=== PATIENT | male | born 1955 | race Two or more races ===

== ENCOUNTER → 2024-10-22 | Outpatient (CLI) | payer MEDICARE, OTHER, SELFPAY ==
[2024-10-22 13:45] LABS: Collection Type, Urine Clean Catch; Squamous Epithelial Cell,Urine 0 /hpf (0-5)
[2024-10-22 14:09] LABS: Basophils # (Auto) 0.0 Thou/mm3 (0.0-0.2); Basophils % (Auto) 1 % (0-2.5); Eosinophils # (Auto) 0.1 Thou/mm3 (0.0-0.5); Eosinophils % (Auto) 2 % (0-10); Hematocrit 42.9 % (41.0-53.0); Hemoglobin 14.7 g/dL (13.5-16.0); Immature Granulocytes Auto 0.01 Thou/mm3 (0.00-0.00); Lymphocytes # (Auto) 1.5 Thou/mm3 (1.0-4.8); Lymphocytes % (Auto) 34 % (10-50); Mean Corpuscular HGB Conc 34.3 g/dl (31.0-37.0); Mean Corpuscular Hemoglobin 30.6 pg (25.0-35.0); Mean Corpuscular Volume 89 fL (80-100); Monocytes # (Auto) 0.4 Thou/mm3 (0.0-0.8); Monocytes % (Auto) 8 % (0-12); Neutrophils # (Auto) 2.5 Thou/mm3 (1.8-7.7); Neutrophils % (Auto) 55 % (37-80); Nucleated Red Blood Cell # 0.00 Thou/mm3 (0.00-0.00); Nucleated Red Blood Cell % 0 /100 WBC (0); Platelet Count 190 Thou/mm3 (140-440); RDW Standard Deviation 39.5 fL (35.1-43.9); Red Blood Count 4.81 Miln/mm3 (4.50-5.90); White Blood Count 4.5 Thou/mm3 (3.8-10.6)
[2024-10-22 14:15] LABS: Bilirubin,Urine Negative (Negative); Blood,Urine Negative (Negative); Clarity,Urine Clear (Clear/Hazy); Color,Urine Yellow (Lt Yel-Yel); Culture Indicated,Urine Not Indicated; Glucose, Urine Negative (Negative); Ketones,Urine Negative (Negative); Leukocyte Esterase,Urine Negative (Negative); Nitrite,Urine Negative (Negative); PH,Urine 6.0 (5.0-7.0); Protein,Urine Trace (Neg - Trace); RBC,Urine 2 /hpf (0-3); Specific Gravity,Urine 1.034 (1.001-1.035); Urobilinogen,Urine Negative mg/dL (0.0-1.0); WBC,Urine 1 /hpf (0-5)
[2024-10-22 14:15] LABS: Prostate Specific Antigen 0.76 ng/mL (0-4.00)
[2024-10-22 14:17] LABS: Glucose Estimated Average 111 mg/dL (80-131); Hemoglobin A1C 5.5 % Hgb (4.8-6.0)
[2024-10-22 14:19] LABS: Alanine Aminotransferase 23 U/L (10-49); Albumin, Serum 4.2 gm/dL (3.4-4.8); Albumin/Globulin Ratio 1.9 (1.2-2.2); Alkaline Phosphatase 55 U/L (46-116); Anion Gap 10 (7-16); Aspartate Amino Transferase 23 U/L (0-34); BUN/Creatinine Ratio 19 Ratio (12-20); Bilirubin,Total 1.2 mg/dL (0.3-1.2); Blood Urea Nitrogen 19 mg/dL (9-23); Calcium 9.8 mg/dL (8.3-10.6); Calcium (Corrected) 9.8 mg/dL (8.5-10.1); Carbon Dioxide 28.0 mMol/L (20.0-31.0); Cardiac Risk Estimate 2.7 RATIO (4.0-6.7); Chloride 108 mMol/L (98-107); Cholesterol 195 mg/dL (132-200); Creatinine (Component) 1.0 mg/dL (0.6-1.3); Globulin 2.2 gm/dL (2.3-3.5); Glucose 96 mg/dL (74-106); HDL Cholesterol 73 mg/dL (40-60); LDL Cholesterol,Calculated 111 mg/dL (0-130); Osmolality,Calculated 292 (275-295); Potassium 4.4 mMol/L (3.4-5.1); Sodium 146 mMol/L (136-145); Thyroid Stimulating Hormone 1.61 uIU/mL (0.55-4.78); Total Protein 6.4 gm/dL (5.7-8.2); Triglycerides 54 mg/dL (30-150); eGFR > 60 See Note
[2024-10-22 14:20] LABS: Vitamin B12 679 pg/mL (211-911); Vitamin D 25 Hydroxy Total 39.6 ng/mL (7.3-40.2)
== END | disposition home or self-care (01) ==
LOC: COPL 12:42
PROVIDERS: PCP Family Medicine; Referring Provider Physician Assistant; Visit Provider Physician Assistant
DX: R73.01 Impaired fasting glucose (principal); E78.5 Hyperlipidemia, unspecified; E55.9 Vitamin D deficiency, unspecified; D51.9 Vitamin B12 deficiency anemia, unspecified
CPT/HCPCS: 36415; 80053; 80061; 81001; 82306; 82607; 83036; 84153; 84443; 85025

== ENCOUNTER → 2024-11-24 | Outpatient (CLI) | payer MEDICARE, OTHER, SELFPAY ==
[2024-11-27 07:07] LABS: Fecal Globin Result NOT DETECTED (NOT DETECTED)
== END | disposition home or self-care (01) ==
LOC: SLDO 10:51
PROVIDERS: PCP Family Medicine; Referring Provider Physician Assistant; Visit Provider Physician Assistant
DX: R73.01 Impaired fasting glucose (principal); E78.5 Hyperlipidemia, unspecified; E55.9 Vitamin D deficiency, unspecified; D51.9 Vitamin B12 deficiency anemia, unspecified
CPT/HCPCS: 82274; G0328

== ENCOUNTER 2024-12-23 10:57 | Emergency (ER) | payer MEDICARE, BC, SELFPAY ==
[2024-12-23 11:09] VITALS: BP 137/65; PULSE 57; RESP 18; TEMP 36.7; O2SAT 100; BMI 30.2
--- NOTE | 2024-12-23 11:12 | XR_ITS ---
Examination: CT abdomen and pelvis without contrast. Coronal 3-D reconstructions. Sagittal 2-D reconstructions. Date and time of exam: December 23, 2024, 1129 hours INDICATIONS: Left side abdominal pain flank pain beginning today CTDI: vol (mGy): 8.45 DLP: (mGycm): 470 Technique: Axial images of the abdomen have been obtained, 3 mm slice thickness Intravenous contrast material has not been administered. Low dose protocols were performed. One or more of the following dose reduction techniques were used; automated exposure control, adjustment of the mA and/or KV according to patient size, use of iterative reconstruction technique. Findings: Benign liver cysts, no intrahepatic biliary tract dilatation Gallbladder wall appears mildly thickened Spleen is not enlarged No pancreatic or adrenal mass Minimal left hydronephrosis secondary to 3 mm proximal left ureteral calculus Normal appendix Colonic diverticulosis No bladder mass or bladder calculi Mild prostatomegaly Diffuse mild to moderate lumbar degenerative disc disease Moderate bilateral hip osteoarthritis IMPRESSION: Minimal left hydronephrosis secondary to 3 mm proximal left ureteral calculus
--- NOTE | 2024-12-23 11:13 | EDRME_ITS ---
Rapid Medical Screening Exam [facility] Arrival date/time: 12/23/24 10:57 69-year-old male presents to the emerged from today for complaints of left sided flank pain and left lower abdominal pain ongoing since last night Chief Complaint: Abdominal Pain Vital signs reviewed by provider: Yes Exam: On exam clinically patient appears to be in pain left lower abdomen and left flank region Clinical Impression: Lab work and imaging ordered as well as medication
--- NOTE | 2024-12-23 11:27 | EDNOTE_ITS ---
<Statement entered by Jaimie Navarro MD - 12/23/24 16:04> As co-signing physician, I was present and available for consult prn. I concur with the plan and care as documented by the midlevel provider. ED Abdominal Pain RME/HPI General Chief Complaint: Abdominal Pain Stated complaint: PAIN L) ABD 8/10 RADIATING TO BACK, VOMITING Time seen by provider: 12/23/24 11:23 Arrival date/time: 12/23/24 10:57 69-year-old male patient came in for evaluation regarding left lower quadrant pain. Onset of symptoms since yesterday as left lower quadrant pain, described as sharp pain, severity 8 out of 10 radiating to the back. Pain initially was noted yesterday getting worse this morning. No fever noted no constipation noted patient chronic diarrhea due to IBS. No medication was taken prior to ER visit. RME / HPI RME / HPI narrative: 12/23/24 10:57 69-year-old male presents to the emerged from today for complaints of left sided flank pain and left lower abdominal pain ongoing since last night Exam: On exam clinically patient appears to be in pain left lower abdomen and left flank region Impression: Lab work and imaging ordered as well as medication Related Data Home Medications ?Medication ?Instructions ?Recorded ?Confirmed omega 5-tcj-keq-fish oil 300 1 cap PO QDAY 04/25/23 mg-1,000 mg capsule (Fish Oil) Previous Rx's ?Medication ?Instructions ?Recorded ketorolac 10 mg tablet 10 mg PO Q8H PRN pain 3 days #10 12/23/24 tabs tamsulosin 0.4 mg capsule (Flomax) 0.4 mg PO QDAY #10 caps 12/23/24 Allergies Allergy/AdvReac Type Severity Reaction Status Date / Time No Known Allergies Allergy Verified 12/23/24 11:00 Review of Systems Review of Systems Narrative Review of Systems: Review of system reviewed and within normal limits except mentioned in HPI ED Exam Narrative Physical exam: VITAL SIGNS: Reviewed. GENERAL APPEARANCE: Alert and interactive, follows commands, no acute distress, HEAD AND FACE: Non-traumatic. ENT: PERRL, pink conjunctivitis, eyelid no trauma, Mucous membrane moist. NECK: Supple, nontender, no nuchal rigidity. CHEST: No tenderness, no crepitus, no paradoxical movement, no retractions. LUNGS: Clear, well ventilated, symmetric, no rales, no wheezing, no ronchi, no stridor, good breath sounds bilaterally. HEART: Regular rate, regular rhythm, no murmur, no gallops. ABDOMEN: Soft, positive bowel sounds, nondistended, no guarding, left lower quadrant tenderness, no rebound, no masses, RECTAL: Deferred. GENITAL: Deferred. NEUROLOGICAL: Gross motor function intact sensory function intact, Appropriate for age. MUSCULOSKELETAL: low back nontender, full range of motion. EXTREMITIES: Nontender, full range of motion. SKIN: Color pink, dry, no rash, no lacerations, no abrasions, no contusions. LYMPHATICS: Deferred. Course Quality Measures none Orders Category Date Time Status Insert IV NOW Care 12/23/24 11:[address] abdomen pelvis wo con Stat Exams 12/23/24 11:12 Completed CBC Stat Lab 12/23/24 11:39 Completed Comprehensive Metabolic Panel Stat Lab 12/23/24 11:39 Completed Lipase Stat Lab 12/23/24 11:39 Completed UA, C/S IF [Urinalysis, C/S if Indicated] Stat Lab 12/23/24 12:47 Completed Ketorolac Inj [Toradol Inj] Med 12/23/24 11:10 Discontinued 30 mg IM X1 ONE Ketorolac Inj [Toradol Inj] Med 12/23/24 11:18 Discontinued 30 mg IVP X1 ONE Morphine* Inj Med 12/23/24 12:15 Discontinued 4 mg IVP X1 ONE Ondansetron Inj [Zofran Inj] Med 12/23/24 11:18 Discontinued 4 mg IVP X1 ONE Ondansetron Odt [Zofran Odt] Med 12/23/24 11:10 Discontinued 4 mg PO X1 ONE Sodium Chloride 0.9% 1000 ml [Ns] 1,000 ml Med 12/23/24 11:18 Discontinued IV 999 mls/hr Sodium Chloride 0.9% 1000 ml [Ns] 1,000 ml Med 12/23/24 12:15 Discontinued IV 999 mls/hr Tamsulosin HCl [Flomax] Med 12/23/24 12:15 Discontinued 0.4 mg PO X1 ONE Vital Signs Vital signs: Vital Signs Temperature 98.0 F 12/23/24 11:09 Pulse Rate 57 L 12/23/24 11:09 Respiratory Rate 18 12/23/24 11:09 Blood Pressure 137/65 H 12/23/24 11:09 Pulse Oximetry (%) 100 12/23/24 11:09 Oxygen Delivery Method Room Air 12/23/24 11:09 Abdominal Pain MDM MDM Narrative MDM Narrative:: 69-year-old male patient came in for evaluation regarding left lower quadrant pain. Onset of symptoms since yesterday as left lower quadrant pain, described as sharp pain, severity 8 out of 10 radiating to the back. Pain initially was noted yesterday getting worse this morning. No fever noted no constipation noted patient chronic diarrhea due to IBS. No medication was taken prior to ER visit. Patient's workup including urinalysis came back unremarkable. CT scan of the abdomen and pelvis showed 3 mm left ureteral stone. Results discussed with the patient. Was given 2 L of IV fluids, Toradol IV, Flomax with complete resolution of pain. Patient stable for discharge home He was advised to follow-up with urologist also. Patient data External records reviewed:: None Clinical information provided by:: patient Social determinants that could affect healthcare access:: none Patient has the following chronic illnesses:: None How is presenting disease/condition affected by chronic disease/condition?: no chronic disease Evaluation data The following diagnostics were reviewed and interpreted by me:: lab results and radiology exam(s) Lab and/or radiology exams considered but not ordered:: None Interpretation Summary: Laboratory UNREMARKABLE. CT SCAN OF THE ABDOMEN PELVIS SHOWED 3 MM LEFT URETERAL STONE Medications / Prescriptions Medications or Prescriptions considered but not ordered:: None Medication administrations:: Medication Administration History Discontinued Medications Sodium Chloride (Ns) 1,000 mls @ 999 mls/hr IV .Q1H1M ONE Stop: 12/23/24 12:18 Last Infusion: 12/23/24 12:44 Dose: Infused Documented By: Admin: 12/23/24 11:43 Dose: 999 mls/hr Documented By: ED Sodium Chloride (Ns) 1,000 mls @ 999 mls/hr IV .Q1H1M ONE Stop: 12/23/24 13:15 Last Admin: 12/23/24 12:51 Dose: 999 mls/hr Documented By: ED Ketorolac Tromethamine (Ketorolac Inj 30 Mg/Ml Vial) 30 mg IM X1 ONE Stop: 12/23/24 11:11 Ketorolac Tromethamine (Ketorolac Inj 30 Mg/Ml Vial) 30 mg IVP X1 ONE Stop: 12/23/24 11:19 Last Admin: 12/23/24 11:53 Dose: 30 mg Documented By: ED Morphine Sulfate (Morphine Sulf Inj 4 Mg/Ml Vial) 4 mg IVP X1 ONE Stop: 12/23/24 12:16 Last Admin: 12/23/24 12:50 Dose: Not Given Documented By: ED Non-Admin Reason: Patient Refused Ondansetron HCl (Ondansetron Odt 4 Mg Tabrap) 4 mg PO X1 ONE; Protocol Stop: 12/23/24 11:11 Ondansetron HCl (Ondansetron Inj 2 Mg/Ml Inj 2 Ml) 4 mg IVP X1 ONE; Protocol Stop: 12/23/24 11:19 Last Admin: 12/23/24 11:45 Dose: 4 mg Documented By: ED Tamsulosin HCl (Tamsulosin Hcl 0.4 Mg Capsule) 0.4 mg PO X1 ONE Stop: 12/23/24 12:16 Last Admin: 12/23/24 12:49 Dose: 0.4 mg Documented By: ED See MDM Consultations Consultation(s) initiated? (list below): No Diagnosis Differential diagnosis abdominal pain: abdominal pain and calculus of kidney Most likely diagnosis given after review of the tests above:: Renal colic, ureterolithiasis Admission Indicated Admission indicated?: not indicated Explain why admission is indicated or not indicated:: Stable Admission Request Was there a request for admission?: No Disposition Plan Disposition Plan: Discharge Discharge Attestation Discharge Attestation: The patient and all family members were given an opportunity to ask questions and understood the discharge instructions. Discharge instructions specifically effects, indications for sooner follow up or return to the emergency department, and the expected course of current diagnosis. Patient condition: Stable Discharge Plan Plan Patient Disposition: HOME (Self Care) Discharge Disposition comment: Stable Prescriptions/Referrals Prescriptions/Med Rec: New tamsulosin [Flomax] 0.4 mg capsule 0.4 mg PO QDAY Qty: 10 0RF ketorolac 10 mg tablet 10 mg PO Q8H PRN (Reason: pain) 3 Days Qty: 10 0RF Rx Instructions: Take your medication with food No Action omega 9-cfg-uwh-fish oil [Fish Oil] 300-1,000 mg Capsule 1 cap PO QDAY Referrals: Maris Myles, RUBEN [Primary Care Provider] - In 1 week Problem List Clinical Impression: Renal colic, Ureterolithiasis Patient/Caregiver Discharge Instructions Discharge Activity: activity as tolerated Education Materials: Treating Kidney Stones ... Additional Instructions: Thank you for the opportunity for serving you today. You are stable for discharged . You are advised to: Follow-up with your PCP in 1 to 2 days Return to ED for worsening of symptoms Increase oral fluids Take medication as prescribed As your PCP to refer you to a urologist Strain your urine and save the stone for your urologist visit Print Language: Telugu Stand Alone Forms: Michelle Award Info., Patient Portal Info Letter PA/LINKER UP Supervising Physician PA/JONI Supervising Physician: MD Ramon
[2024-12-23] MEDS: SODIUM CHLORIDE 0.9% 1000 ML 1,000 ML 999 ML IV ×2 (11:43→12:51)
[2024-12-23 11:45] LABS: Basophils # (Auto) 0.0 Thou/mm3 (0.0-0.2); Basophils % (Auto) 0 % (0-2.5); Eosinophils # (Auto) 0.0 Thou/mm3 (0.0-0.5); Eosinophils % (Auto) 0 % (0-10); Hematocrit 41.5 % (41.0-53.0); Hemoglobin 14.8 g/dL (13.5-16.0); Immature Granulocytes Auto 0.02 Thou/mm3 (0.00-0.00); Lymphocytes # (Auto) 1.0 Thou/mm3 (1.0-4.8); Lymphocytes % (Auto) 14 % (10-50); Mean Corpuscular HGB Conc 35.7 g/dl (31.0-37.0); Mean Corpuscular Hemoglobin 31.4 pg (25.0-35.0); Mean Corpuscular Volume 88 fL (80-100); Monocytes # (Auto) 0.3 Thou/mm3 (0.0-0.8); Monocytes % (Auto) 5 % (0-12); Neutrophils # (Auto) 5.8 Thou/mm3 (1.8-7.7); Neutrophils % (Auto) 81 % (37-80); Nucleated Red Blood Cell # 0.00 Thou/mm3 (0.00-0.00); Nucleated Red Blood Cell % 0 /100 WBC (0); Platelet Count 205 Thou/mm3 (140-440); RDW Standard Deviation 39.2 fL (35.1-43.9); Red Blood Count 4.72 Miln/mm3 (4.50-5.90); White Blood Count 7.2 Thou/mm3 (3.8-10.6)
[2024-12-23] MEDS: ONDANSETRON INJ 2 MG/ML INJ 2 ML 4 MG IVP (11:45)
[2024-12-23] MEDS: KETOROLAC INJ 30 MG/ML VIAL IVP (11:53)
[2024-12-23 12:02] LABS: Alanine Aminotransferase 22 U/L (10-49); Albumin, Serum 4.7 gm/dL (3.4-4.8); Albumin/Globulin Ratio 2.2 (1.2-2.2); Alkaline Phosphatase 55 U/L (46-116); Anion Gap 12 (7-16); Aspartate Amino Transferase 22 U/L (0-34); BUN/Creatinine Ratio 14 Ratio (12-20); Bilirubin,Total 0.7 mg/dL (0.3-1.2); Blood Urea Nitrogen 15 mg/dL (9-23); Calcium 9.1 mg/dL (8.3-10.6); Calcium (Corrected) 9.1 mg/dL (8.5-10.1); Carbon Dioxide 22.4 mMol/L (20.0-31.0); Chloride 107 mMol/L (98-107); Creatinine (Component) 1.1 mg/dL (0.6-1.3); Estimated Creatinine Clearance 62.9 mL/min (>60); Globulin 2.1 gm/dL (2.3-3.5); Glucose 153 mg/dL (74-106); Lipase 46 U/L (12-53); Osmolality,Calculated 285 (275-295); Potassium 3.8 mMol/L (3.4-5.1); Sodium 141 mMol/L (136-145); Total Protein 6.8 gm/dL (5.7-8.2); eGFR > 60 See Note
[2024-12-23 12:43] VITALS: BP 128/73; PULSE 63; RESP 18; TEMP 36.8; O2SAT 94
[2024-12-23] MEDS: TAMSULOSIN HCL 0.4 MG CAPSULE PO (12:49)
[2024-12-23 13:11] LABS: Collection Type, Urine Clean Catch; Squamous Epithelial Cell,Urine 0 /hpf (0-5)
[2024-12-23 13:16] LABS: Bilirubin,Urine Negative (Negative); Blood,Urine 3+ (Negative); Clarity,Urine Clear (Clear/Hazy); Color,Urine Lt-Yellow (Lt Yel-Yel); Culture Indicated,Urine Not Indicated; Glucose, Urine Negative (Negative); Ketones,Urine 2+ (Negative); Leukocyte Esterase,Urine Negative (Negative); Nitrite,Urine Negative (Negative); PH,Urine 7.5 (5.0-7.0); Protein,Urine Negative (Neg - Trace); RBC,Urine 109 /hpf (0-3); Specific Gravity,Urine 1.017 (1.001-1.035); Urobilinogen,Urine Negative mg/dL (0.0-1.0); WBC,Urine < 1 /hpf (0-5)
[2024-12-23 14:14] VITALS: BP 155/79; PULSE 64; RESP 18; TEMP 36.7; O2SAT 98
[2024-12-23 15:02] VITALS: BP 145/79; PULSE 66; RESP 17; TEMP 36.9; O2SAT 98
== END 2024-12-23 15:09 | disposition home or self-care (01) ==
PROVIDERS: Nurse Practitioner Primary Care; Emergency Provider Emergency Medicine; PCP Registered Nurse
DX: K58.9 Irritable bowel syndrome, unspecified (principal)
CPT/HCPCS: 36415; 74176; 80053; 81001; 83690; 85025; 96361; 96374; 96375; 99284; J1885; J2405; J7030; A9270